=== PATIENT | female | born 1995 | race Asian ===

== ENCOUNTER 2017-03-07 16:25 | Emergency (ER) | payer OTHER ==
[2017-03-07] MEDS ORDERED: HYDROmorphONE/DILAUDID 1 MG/ML INJ IVP ONE (16:37)
[2017-03-07] MEDS ORDERED: NS 1,000 ML IV ONE (16:37)
[2017-03-07] MEDS ORDERED: PROMETHAZINE HCL 25 MG/ML INJ IVP ONE (16:37)
[2017-03-07] MEDS ORDERED: KETOROLAC 30 MG/1 ML SDV IVP ONE (16:37)
--- NOTE | 2017-03-07 16:45 | EDPHY ---
H & P Time Seen by Provider: 03/07/17 16:28 HPI/ROS: HPI Fever, vomiting, abdominal pain, headache. 21-year-old female by ambulance from the [facility]. She reports that 3 days ago she developed fever, muscle aches and joint aches with nausea and vomiting and upper abdominal discomfort. She was seen at the [facility]. She was sent to the emergency department because despite a g of Tylenol her fever remained high. She also reports development of a gradual onset headache which she describes as frontal and aching today. She reports her roommate has had a similar illness about a week ago. Her roommate is now better. She comes with results laboratory work and influenza studies [facility]. She is negative for flu A and flu B. CBC is unremarkable, chemistry panel unremarkable, LFTs unremarkable. ROS: Constitutional: As above, no chills. No weakness. Eyes: No discharge. No changes in vision. ENT: No sore throat. No nasal congestion or rhinorrhea. Respiratory: No cough. No shortness of breath. Cardiac: No chest pain, no palpitations. Gastrointestinal: As above, no diarrhea. Genitourinary: No hematuria. No dysuria or increased frequency with urination. Musculoskeletal: No back pain. No neck pain. As above. Skin: No rashes. Neurological: As above. No focal weakness or altered sensation. Past medical history: She denies any significant past medical history. No medications. No medication allergies. Social history: Nonsmoker. No alcohol. [employer]. Here by herself. Physical Exam: General Appearance: Alert, mildly anxious. This patient is responding to questions appropriately and in full sentences. This patient appears well- hydrated and well-nourished. Eyes: Pupils equal and round no pallor or injection. No lid edema, erythema or injection. No photophobia. No nystagmus. ENT, Mouth: Mucous membranes are moist. The pharyngeal tissues are unremarkable. No edema or swelling. No asymmetry suggestive of abscess. No erythema or exudates. Respiratory: There are no retractions, lungs are clear to auscultation with good air movement bilaterally. Cardiovascular: Regular rate and rhythm. Borderline tachycardia. No murmur. Gastrointestinal: Abdomen is soft with mild to moderate epigastric tenderness on palpation, no masses, bowel sounds normal. No focal tenderness at McBurney' s point. No Ledesma sign. Neurological: Motor sensory function is grossly intact. Cranial nerves are normal. Gait is normal. Skin: Warm and dry, no rashes. Musculoskeletal: Neck is supple and nontender. No pain on flexion of her neck. Extremities are symmetrical. All joints range without pain or impingement. Psychiatric: No agitation. No depression. Database: EKG: Imaging: Right upper quadrant abdominal ultrasound; gallbladder unremarkable. Pancreas not well visualized. Otherwise normal study. Results were discussed with staff radiologist Dr. Ky Pedro. Procedures: Emergency department course: Vital signs reviewed. She is 37.4 here in the emergency department. Heart rate is 104 on the monitor currently. Blood pressure is normal. IV was [facility] at the [facility]. She was started on a L of normal saline. She will be given 6.25 mg of IV Phenergan for nausea, and 30 mg of IV Toradol for her headache. Right upper quadrant ultrasound to be obtained to evaluate her gallbladder. 6:20 p.m., patient up and ambulatory to the bathroom. Urinalysis dip showed trace blood, ketones and trace protein. 6:40 p.m., patient re-evaluated. Resting comfortably. Vital signs reviewed and are normal. She states that she feels much better. Repeat abdominal exam she is soft, nontender nondistended. Her roommate is in the room with her. She feels comfortable going home at this time. Neck is supple. No pain on flexion of her neck. She is up and ambulatory around the emergency department without difficulty. Follow-up at the [facility] was discussed. Return to emergency department precautions reviewed. All of her questions were answered. She was discharged in good condition with her friend who is driving. Differential Diagnosis: The differential diagnosis on this patient includes but is not limited to viral syndrome. Meningitis, encephalitis, pancreatitis, cholecystitis unlikely. This represents a partial list of diagnoses considered. These considerations are based on history, physical exam, past history, reassessment and diagnostic testing. Constitutional: Initial Vital Signs Temperature (C) 37.4 C 03/07/17 16:43 Heart Rate 101 H 03/07/17 16:43 Respiratory Rate 16 03/07/17 16:43 Blood Pressure 117/79 03/07/17 16:43 O2 Sat (%) 96 03/07/17 16:43 O2 Delivery Mode Room Air Allergies/Adverse Reactions: No Known Allergies Allergy (Unverified 03/07/17 16:42) Home Medications: Medication Instructions Recorded Ondansetron Odt [Zofran Odt 4 mg 4 mg PO Q4PRN PRN #10 tab 03/07/17 (*)] Medical Decision Making - Diagnostics Imaging Results: Imaging Impressions Abdomen Ultrasound 03/07/17 16:52 Impression: No cholelithiasis or biliary ductal dilation. Findings and recommendations discussed with Emergency Department physician, Antonio Alvarez MD at 17:31 hour, 03/07/2017. Final report concurs with initial preliminary interpretation. - Data Points Laboratory Results: 03/07/17 03/07/17 17:47 17:47 Lipase 71 IU/L IU/L (23-300) Beta HCG, Qual NEGATIVE Medications Given: Discontinued Medications Sodium Chloride (Ns) 1,000 mls @ 0 mls/hr IV EDNOW ONE; Wide Open PRN Reason: Protocol Stop: 03/07/17 16:38 Last Admin: 03/07/17 16:52 Dose: 1,000 mls Ketorolac Tromethamine (Toradol) 30 mg IVP EDNOW ONE Stop: 03/07/17 16:38 Last Admin: 03/07/17 16:53 Dose: 30 mg Promethazine HCl (Phenergan) 6.25 mg IVP EDNOW ONE Stop: 03/07/17 16:38 Last Admin: 03/07/17 16:53 Dose: 6.25 mg Departure - Departure Disposition: Home, Routine, Self-Care Clinical Impression: Fever, Abdominal discomfort, Nausea, Probable viral syndrome, Myalgia Condition: Good Instructions: Viral Syndrome (ED), Abdominal Pain (ED) Additional Instructions: Read and follow provided instructions. Follow-up with your primary care physician at the [facility] tomorrow for re-evaluation. Get lots of rest. Drink lots of fluids, keep well hydrated. You can start taking ibuprofen tomorrow. Ibuprofen dosin mg every 6 hours with meals for the next 3 days only. Take only as needed for fever, headache, muscle aches and joint aches. Take medication as prescribed for nausea. Return to the emergency department for worsening symptoms, worsening fever, worsening headache, vomiting, worsening abdominal pain or other serious concerns. Referrals: Patient,NotPresent [Unknown] - As per Instructions Prescriptions: Ondansetron Odt [Zofran Odt 4 mg (*)] 4 mg PO Q4PRN PRN #10 tab PRN Reason: For Nausea & Vomiting
[2017-03-07 16:48] VITALS: RESP 16
[2017-03-07 17:50] VITALS: TEMP 99.1; O2SAT 97
[2017-03-07 19:30] VITALS: BP 113/73; PULSE 98
== END 2017-03-07 19:29 | disposition home or self-care (01) ==
DX: R50.9 Fever, unspecified (principal); R10.9 Unspecified abdominal pain; R11.0 Nausea; E86.9 Volume depletion, unspecified
CPT/HCPCS: 96374; J1885; J2550